=== PATIENT | male | born 1985 | race Caucasian/White ===

== ENCOUNTER 2023-07-30 07:29 | Day surgery (SDC) | payer OTHER ==
[~2023-07-30 07:29] MED LIST: Albuterol 0.083% 2.5 MG/3 ML Neb Soln NEB PRN; HYDROmorphone 1 MG/ML Syringe IVPUSH PRN; Lactated Ringers 1,000 ML IV SCH; Metoclopramide 10 MG/2 ML SDV IVPUSH PRN; Morphine 2 MG/ML SYRINGE IVPUSH PRN; Naloxone 0.4 MG/ML SDV IVPUSH PRN; Ondansetron 4 MG/2 ML SDV IVPUSH PRN; Scopolamine 1.5 MG Transdermal Patch TOP ONE; droPERidol 5 MG/2 ML SDV IVPUSH PRN; fentaNYL 50 MCG/ML SDV IVPUSH PRN
[2023-07-30] MEDS ORDERED: Dexmedetomidine 200 MCG/2 ML SDV IV ONE (07:30)
[2023-07-30] MEDS ORDERED: Lidocaine 2% 5 ML SDV ONE (07:37)
[2023-07-30] MEDS ORDERED: Bupivacaine 0.5% 30 ML SDV ONE (07:37)
[2023-07-30] MEDS ORDERED: Propofol 200 MG/20 ML SDV ONE ×2 (08:00→08:16)
[2023-07-30] MEDS ORDERED: fentaNYL 100 MCG/2 ML SDV ONE (08:02)
[2023-07-30] MEDS ORDERED: Bupivacaine 0.5%/EPINEPHrine 1:200,000 30 ML SDV ONE (08:06)
[2023-07-30] MEDS ORDERED: ceFAZolin 2 GM Vial ONE (08:31)
[2023-07-30] MEDS ORDERED: ceFAZolin 1 GM Vial ONE (08:31)
[2023-07-30] MEDS ORDERED: Ondansetron 4 MG/2 ML SDV ONE (08:51)
[2023-07-30] MEDS ORDERED: Ketorolac 30 MG/ML SDV ONE (08:51)
== END 2023-07-30 10:57 | disposition home or self-care (01) ==
LOC: MW.SDS 07:29
PROVIDERS: ATTEND Orthopaedic Surgery
DX: M25.721 Osteophyte, right elbow (principal); F43.10 Post-traumatic stress disorder, unspecified; E66.9 Obesity, unspecified; Z68.37 Body mass index [BMI] 37.0-37.9, adult; F17.290 Nicotine dependence, other tobacco product, uncomplicated; Z98.890 Other specified postprocedural states; Z79.899 Other long term (current) drug therapy
CPT/HCPCS: 76000; 76000-26; A9270-GY; J0131; J0690; J1885; J2405; J2704; J3010; J3490; J7120